=== PATIENT | male | born 1950 | race Caucasian/White ===

== ENCOUNTER 2024-05-22 09:38 | Emergency (ER) | payer OTHER, SELFPAY ==
[2024-05-22 09:40] VITALS: BP 146/78; PULSE 77; RESP 18; TEMP 36.8; O2SAT 95; BMI 29.9
--- NOTE | 2024-05-22 09:41 | XRR_ITS ---
PROCEDURE INFORMATION: Exam: XR Chest Exam date and time: 05/22/2024 9:43 AM Age: 73 years old Clinical indication: Injury or trauma; Fall; Blunt trauma (contusions or hematomas) TECHNIQUE: Imaging protocol: Radiologic exam of the chest. Views: 1 view. COMPARISON: No relevant prior studies available. FINDINGS: Lungs: Unremarkable. No consolidation. Pleural spaces: Unremarkable. No pleural effusion. No pneumothorax. Heart/Mediastinum: Tortuous aorta noted. No cardiomegaly. Bones/joints: Severe osteoarthritic changes right shoulder. XR/XR chest 1V portable [id number] IMPRESSION: No acute findings.
--- NOTE | 2024-05-22 09:43 | W.ED.FALL ---
HPI - Fall General: Chief Complaint: General Medical Stated Complaint: RIGHT RIB PAIN S/P FALL FROM LADDER Time Seen by Provider: 05/22/24 09:39 Source: patient and EMS Mode of arrival: EMS Limitations: no limitations History of Present Illness: 73-year-old male states that he is on a ladder this morning felt little dizzy fell off roughly 10 to 12 foot fall states that he fell on his right side he has right-sided chest wall pain he rates a 6 out of 10 EMS got to him he states that he had felt lightheaded and vomited he does not think he hit his head he is in a c-collar he is got a mild headache. Denies abdominal pain denies any extremity pain Associated symptoms-after fall: Reports chest pain, headache(s) and neck pain; Denies abdominal pain Review of Systems Const: Denies: fever(s), chills, body aches or change in appetite ENMT: Denies: throat pain or dental pain Card: Reports: chest pain Resp: Denies: dyspnea GI: Reports: nausea and vomiting; Denies: abdominal pain or diarrhea Musc: Reports: neck pain; Denies: back pain Skin/Breast: Denies: rash Neuro: Reports: headache(s) Physical Exam Const: COMMON NORMALS: no acute distress, patient oriented x3 and healthy appearing HENMT: COMMON NORMALS: normocephalic HEAD & SCALP: normocephalic Eye: COMMON NORMALS: Equal, round and reactive pupils present and EOMs intact bilaterally PUPIL: Yes Equal, round and reactive pupils present Neck/C-Spine: OTHER: in c collar Chest: COMMONS NORMALS: normal inspection of the chest and normal palpation of entire chest wall Resp: COMMON NORMALS: normal respiratory effort, No retractions, No use of accessory muscles and clear to auscultation bilaterally AUSCULTATION: clear to auscultation bilaterally Cardio: COMMON NORMALS: regular rate, regular rhythm and No murmurs present (Cardio) RATE: regular rate RHYTHM: regular rhythm GI: COMMON NORMALS: Normal to inspection, nondistended, normoactive bowel sounds present, Soft to palpation, non-tender and no masses PALPATION: Yes Soft to palpation Extremity: COMMON NORMALS: normal to inspection and full ROM Neuro: COMMON NORMALS: patient oriented x3, moves all extremities and no focal motor deficits Psych: COMMON NORMALS: mental status grossly normal, Normal thought process present and cooperative THOUGHT PROCESS: Normal thought process present Skin: COMMON NORMALS: no rashes or lesions noted and no wounds GENERAL SKIN EXAM: no rashes or lesions noted Course Vital Signs: Vital signs: Vital Signs Temperature 98.2 F 05/22/24 09:40 Pulse Rate 62 05/22/24 11:14 Respiratory Rate 17 05/22/24 09:50 Blood Pressure 129/66 05/22/24 11:14 Pulse Oximetry 91 05/22/24 11:14 Oxygen Delivery Me thod Room Air 05/22/24 11:14 MDM - Fall Medical Decision Making Patient presents here after a fall imaging here shows rib fracture no other injuries he is ambulatory here he is stable for discharge follow-up with PCP return if worsening will prescribe him pain meds. Medical Records I reviewed the patient's medical records. Lab Data I reviewed the patient's lab results. 05/22/24 09:58 05/22/24 09:58 Radiology Impressions Chest X-Ray 05/22/24 09:41 IMPRESSION: No acute findings. Cervical Spine CT 05/22/24 09:58 IMPRESSION: 1. Reversal of normal C-spine lordosis 2. No acute fracture detected 3. Subluxations as described. These are favored to be degenerative in origin 4. Multilevel degenerative disc disease and spondylosis. Multilevel facet degenerative change. See individual levels above for more complete description Chest CT 05/22/24 09:58 IMPRESSION: 1. Acute nondisplaced fracture of right 6th rib and left 6th rib anteriorly. 2. Mild dependent atelectasis in lung bases. COMMENTS: Consistent with the [employer]'s Incidental Findings Committee white paper (J Am Timothy Radiol 2018): Any incidental renal lesion less than 1 cm or classified as too small to characterize, or any incidental cystic renal lesion characterized as simple-appearing, is likely benign. No follow-up imaging is recommended for these lesions per consensus recommendations based on imaging criteria. Head CT 05/22/24 09:58 IMPRESSION: 1. Atrophy 2. Negative for acute intracranial findings Pelvis X-Ray 05/22/24 10:48 IMPRESSION: No acute fracture identified given the limitations of single frontal radiograph. Follow-up radiographs or CT scan as clinically indicated. Laboratory Results WBC 9.91 10^3/uL (3.29-11.43) 05/22/24 09:58 RBC 4.98 10^6/uL (3.85-5.65) 05/22/24 09:58 Hgb 13.80 g/dL (11.27-16.99) 05/22/24 09:58 Hct 43.7 % (37-53) 05/22/24 09:58 MCV 87.8 fl (82-101) 05/22/24 09:58 MCH 27.7 pg (27-33) 05/22/24 09:58 MCHC 31.6 g/dL (30-55) 05/22/24 09:58 RDW 14.0 % (12.1-15.1) 05/22/24 09:58 Plt Count 147 10^3/cmm (157-399) L 05/22/24 09:58 MPV 9.7 fL (7.4-10.4) 05/22/24 09:58 Neut % (Auto) 76.4 % 05/22/24 09:58 Lymph % (Auto) 15.3 % 05/22/24 09:58 [place] % (Auto) 6.3 % 05/22/24 09:58 Eos % (Auto) 0.6 % 05/22/24 09:58 Baso % (Auto) 0.3 % 05/22/24 09:58 Neut # (Auto) 7.57 10^3/uL (1.8-7.7) 05/22/24 09:58 Lymph # (Auto) 1.5 10^3/uL (0.8-4.8) 05/22/24 09:58 [place] # (Auto) 0.6 10^3/uL (0.2-0.9) 05/22/24 09:58 Eos # (Auto) 0.1 10^3/uL (0.0-0.8) 05/22/24 09:58 Baso # (Auto) 0.0 10^3/uL (0.0-0.1) 05/22/24 09:58 Nucleated RBC % (auto) 0 % 05/22/24 09:58 Nucleated RBCs # 0.0 /100WBC 05/22/24 09:58 Sodium 141 mmol/L (136-145) 05/22/24 09:58 Potassium 3.6 mmol/L (3.5-5.1) 05/22/24 09:58 Chloride 103 mmol/L (98-107) 05/22/24 09:58 Carbon Dioxide 23 mmol/L (22-29) 05/22/24 09:58 Anion Gap 18.6 (5-19) 05/22/24 09:58 BUN 18 mg/dL (8-23) 05/22/24 09:58 Creatinine 0.9 mg/dL (0.7-1.2) 05/22/24 09:58 GFR Calculation Not Reportable 05/22/24 09:58 Glucose 193 mg/dL (65-115) H 05/22/24 09:58 Calculated Osmolality 299 mOsm/kg (285-295) H 05/22/24 09:58 Calcium 8.7 mg/dL (8.5-10.5) 05/22/24 09:58 All radiology interpretation(s) finalized by discharge EKG Data EKG 1: I personally reviewed and interpreted this EKG as follows: EKG interpretation date: 05/22/24 EKG interpretation time: 09:50 Interpretation: nsr hr [address] or t wave abnormalities qrs 107 qtc 454 Discharge Plan Discharge Patient Disposition: Home Clinical Impression: Fall Qualifiers: Encounter type: initial encounter Qualified Code(s): W19.XXXA - Unspecified fall, initial encounter Closed rib fracture Qualifiers: Encounter type: initial encounter Rib fracture type: multiple ribs Laterality: bilateral Qualified Code(s): S22.43XA - Multiple fractures of ribs, bilateral, initial encounter for closed fracture Condition: Stable Prescriptions: New hydrocodone-acetaminophen 5-325 mg tablet 1 tab PO Q6H PRN (Reason: pain) Qty: 14 0RF ondansetron 4 mg tablet,disintegrating 4 mg PO Q6H PRN (Reason: nausea and vomiting) Qty: 14 0RF Discharge Orders: Discharge ED (Routine); Ordered 05/22/24 Ordered By: Nanci Figueroa Discharge Diet: Advance as tolerated Discharge Activity: Resume usual activity Patient Instructions: Rib Fracture (ED), Opioid Safety Coding Level of Care Code ED It Operations Specialist for Raissa Huynh
[2024-05-22] MEDS: ondansetron 2 mg/ML SDV 2 mL 4 MG IVP ×2 (09:47→10:56)
[2024-05-22 09:50] VITALS: RESP 17; O2SAT 92
[2024-05-22] MEDS: morphine 4 mg/mL SDV 1 mL IVP (09:50)
--- NOTE | 2024-05-22 09:50 | ECG_ITS ---
[facility] Test Date: 2024-05-22 Pat Name: Shan Pollock Department: Room: Gender: Male Recruitment Manager: : 1950 Requested By: Nanci Figueroa Order Number: [id number] Landen MD: Wilber Coehn M.D. Measurements Intervals [place] Rate: 66 P: 45 WV: 179 QRS: 3 QRSD: 107 T: 49 QT: 440 QTc: 463 Interpretive Statements SINUS RHYTHM WITH OCCASIONAL VENTRICULAR PREMATURE COMPLEXES No previous ECG available for comparison Electronically Signed On 05-22-2024 10:01:00 CDT by Wilber Cohen M.D. [id number]
--- NOTE | 2024-05-22 09:58 | CTR_ITS ---
PROCEDURE INFORMATION: Exam: CT Head Without Contrast Exam date and time: 05/22/2024 10:04 AM Age: 73 years old Clinical indication: Injury or trauma; Fall; Blunt trauma (contusions or hematomas) TECHNIQUE: Imaging protocol: Computed tomography of the head without contrast. Radiation optimization: All CT scans at this facility use at least one of these dose optimization techniques: automated exposure control; mA and/or kV adjustment per patient size (includes targeted exams where dose is matched to clinical indication); or iterative reconstruction. COMPARISON: CT cervical spin wo con* [id number] 05/22/2024 10:04 AM RADIATION DOSE METRICS: Total DLP (mGy-cm): 1173 FINDINGS: Brain: No acute infarction or hemorrhage is detected Cerebral ventricles: No ventriculomegaly. Paranasal sinuses: There is minor mucosal thickening involving the maxillary sinuses. There is also mucosal thickening involving the ethmoid sinuses. Mastoid air cells: The mastoid air cells are clear. Bones: Unremarkable. No acute fracture. Soft tissues: Unremarkable. Other findings: . There is gpja-ka-xjeugxsb diffuse atrophy. CT/CT head wo con* [id number] IMPRESSION: 1. Atrophy 2. Negative for acute intracranial findings
--- NOTE | 2024-05-22 09:58 | CTR_ITS ---
PROCEDURE INFORMATION: Exam: CT Cervical Spine Without Contrast Exam date and time: 05/22/2024 10:04 AM Age: 73 years old Clinical indication: Injury or trauma; Fall; Blunt trauma TECHNIQUE: Imaging protocol: Computed tomography of the cervical spine without contrast. Radiation optimization: All CT scans at this facility use at least one of these dose optimization techniques: automated exposure control; mA and/or kV adjustment per patient size (includes targeted exams where dose is matched to clinical indication); or iterative reconstruction. COMPARISON: CT head wo con* [id number] 05/22/2024 10:04 AM RADIATION DOSE METRICS: Total DLP (mGy-cm): 679.1 FINDINGS: Bones: There is reversal of the normal C-spine lordosis. No acute fracture is detected. There is anterolisthesis at C2-C3 measured at 2.5 mm. There is 2.0 mm anterolisthesis C3 on C4. There is 2.5 mm anterolisthesis C7-T1. There is 2.0 mm anterolisthesis T2-3. These are favored to be degenerative in origin. There is multilevel degenerative disc disease and spondylosis. There are degenerative changes anteriorly at C1-C2. At C2-C3, there is mild disc bulge without significant central or significant foraminal stenosis. At C3-C4, there is disc bulge and spondylosis. The disc is degenerated. There is mild central canal stenosis. There is wydpvtdj-dt-mwehes right and mild left foraminal stenosis. C4-C5, the disc is degenerated. There is disc bulge and spondylosis. There is mild central canal stenosis. There is qrgvhwxn-ea-cnlscj bilateral foraminal stenosis. At C5-C6, the disc is degenerated. There is disc bulge and spondylosis with mild central canal stenosis. There is qsgwname-af-dncnnx bilateral foraminal stenosis. At C6-C7, there is disc bulge and spondylosis. There is mild central canal stenosis. There is ifseyxat-dn-efickj right and moderate left foraminal stenosis. At C7-T1, there is no significant central or significant foraminal stenosis. There is no significant central or foraminal stenosis at T1-2 and there is no significant central or foraminal stenosis at T2-3. Lungs: The included portions of the lung apices are clear. Thyroid: The thyroid gland is unremarkable. Soft tissues: No soft tissue neck mass is detected. Other findings: . CT/CT cervical spin wo con* [id number] IMPRESSION: 1. Reversal of normal C-spine lordosis 2. No acute fracture detected 3. Subluxations as described. These are favored to be degenerative in origin 4. Multilevel degenerative disc disease and spondylosis. Multilevel facet degenerative change. See individual levels above for more complete description
--- NOTE | 2024-05-22 09:58 | CTR_ITS ---
PROCEDURE INFORMATION: Exam: CT Chest With Contrast; Diagnostic Exam date and time: 05/22/2024 10:08 AM Age: 73 years old Clinical indication: Injury or trauma; Fall; Blunt trauma (contusions or hematomas) TECHNIQUE: Imaging protocol: Diagnostic computed tomography of the chest with contrast. Radiation optimization: All CT scans at this facility use at least one of these dose optimization techniques: automated exposure control; mA and/or kV adjustment per patient size (includes targeted exams where dose is matched to clinical indication); or iterative reconstruction. Contrast material: OMNI 350; Contrast volume: 100 ml; Contrast route: INTRAVENOUS (IV); COMPARISON: CR XR chest 1V portable [id number] 05/22/2024 9:43 AM RADIATION DOSE METRICS: Total DLP (mGy-cm): 635.71 FINDINGS: Lungs: No consolidation. No masses. Benign calcified granuloma in right frontal lobe. Mild dependent atelectatic changes. Pleural spaces: No pneumothorax. No pleural effusion. Heart: No pericardial effusion. Lymph nodes: No enlarged lymph nodes. Vasculature: Visualized abdominal aorta show endoluminal graft in the infrarenal portion, not completely imaged. Minimal fusiform dilatation ascending thoracic aorta measuring 3.6 cm. No focal aneurysm. No dissection. No acute pulmonary embolism. Bones/joints: Focal cortical break in anterior aspect of left 6th rib (series 4, image 38) nondisplaced fracture. Acute nondisplaced fracture anterior end of right 6th rib. (series 4, image 40). Deformity of mid body of the sternum likely from old fracture noted. Soft tissues: Small hiatal hernia. Multiple small calcifications scattered in the pancreas more in the head region. Calcifications in right kidney anterior capsule noted. 4.3 cm cortical cyst in the upper pole of left kidney. 7 mm cyst in left lobe of the liver. 8 mm skin based lesion in right lower paramedian area noted. CT/CT chest w con* [id number] IMPRESSION: 1. Acute nondisplaced fracture of right 6th rib and left 6th rib anteriorly. 2. Mild dependent atelectasis in lung bases. COMMENTS: Consistent with the [employer]'s Incidental Findings Committee white paper (J Am Timothy Radiol 2018): Any incidental renal lesion less than 1 cm or classified as too small to characterize, or any incidental cystic renal lesion characterized as simple-appearing, is likely benign. No follow-up imaging is recommended for these lesions per consensus recommendations based on imaging criteria.
[2024-05-22 10:04] LABS: Basophils % 0.3 %; Eosinophils # 0.1 10^3/uL (0.0-0.8); Eosinophils % 0.6 %; Hematocrit 43.7 % (37-53); Lymphocytes # 1.5 10^3/uL (0.8-4.8); Lymphocytes % 15.3 %; Mean Corpuscular HGB Conc 31.6 g/dL (30-55); Mean Corpuscular Hemoglobin 27.7 pg (27-33); Mean Corpuscular Volume 87.8 fl (82-101); Mean Platelet Volume 9.7 fL (7.4-10.4); Monocytes # 0.6 10^3/uL (0.2-0.9); Monocytes % 6.3 %; Neutrophils # 7.57 10^3/uL (1.8-7.7); Neutrophils % 76.4 %; Nucleated Red Blood Cells % 0 %; Platelet Count 147 10^3/cmm (157-399); Red Blood Count 4.98 10^6/uL (3.85-5.65); White Blood Count 9.91 10^3/uL (3.29-11.43)
[2024-05-22] MEDS: iohexol 350 mg/mL 500 mL Btl (per mL) IV (10:11)
[2024-05-22 10:20] LABS: Anion Gap 18.6 (5-19); Blood Urea Nitrogen 18 mg/dL (8-23); Calcium 8.7 mg/dL (8.5-10.5); Carbon Dioxide 23 mmol/L (22-29); Chloride 103 mmol/L (98-107); Creatinine Clr Calc Pharmacy 84.4486; Glucose 193 mg/dL (65-115); Osmolality Calculated 299 mOsm/kg (285-295); Potassium 3.6 mmol/L (3.5-5.1); Sodium 141 mmol/L (136-145)
--- NOTE | 2024-05-22 10:48 | XRR_ITS ---
PROCEDURE INFORMATION: Exam: XR Pelvis Exam date and time: 05/22/2024 11:03 AM Age: 73 years old Clinical indication: Injury or trauma; Fall; Blunt trauma (contusions or hematomas); Bilateral; Pelvic region; Prior surgery; Surgery date: 6+ months; Surgery type: Giacomo hip replacement; Additional info: Fall from ladder TECHNIQUE: Imaging protocol: Radiologic exam of the pelvis. Views: 1 or 2 view. COMPARISON: No relevant prior studies available. FINDINGS: Bones/joints: Bilateral hip prosthesis noted. Inferior extent of right femur component prosthesis not completely imaged. No acute fracture identified. No dislocation. Minimal spondylotic changes in lower lumbar spine. Soft tissues: Contrast noted within the urinary bladder. Aortic and common iliac stent noted. XR/XR pelvis 1-2V* [id number] IMPRESSION: No acute fracture identified given the limitations of single frontal radiograph. Follow-up radiographs or CT scan as clinically indicated.
[2024-05-22 11:14] VITALS: BP 129/66; PULSE 62; O2SAT 91
[2024-05-22 12:16] VITALS: BP 125/73; PULSE 71; RESP 17; O2SAT 95
== END 2024-05-22 12:18 | disposition home or self-care (01) ==
PROVIDERS: Emergency Provider Emergency Medicine
DX: S22.43XA Multiple fractures of ribs, bilateral, initial encounter for closed fracture (principal); W11.XXXA Fall on and from ladder, initial encounter
CPT/HCPCS: 36415; 70450; 71045; 71260; 72125; 72170; 80048; 85025; 93005; 96374; 96375; 96376; 99285; J2270; J2405; Q9967